=== PATIENT | male | born 1960 | race Caucasian/White ===

== ENCOUNTER 2017-09-22 03:22 | Emergency (ER) | payer MEDICARE, OTHER, SELFPAY | END 2017-09-22 05:59 | disposition home or self-care (01) | PROVIDERS: Emergency Provider Emergency Medicine; Family Provider Emergency Medicine; Visit Provider Emergency Medicine | DX: E87.6 Hypokalemia (principal); D53.9 Nutritional anemia, unspecified; E86.0 Dehydration; E11.9 Type 2 diabetes mellitus without complications; K74.60 Unspecified cirrhosis of liver; W18.12XA Fall from or off toilet with subsequent striking against object, initial encounter; Y92.091 Bathroom in other non-institutional residence as the place of occurrence of the external cause | CPT/HCPCS: 70450; 80053; 82140; 82607; 82746; 83010; 84466; 84484; 85025; 85044; 85610; 93005; 93041; 99284 ==

== ENCOUNTER 2017-10-24 05:25 | Emergency (ER) | payer MEDICARE, OTHER, SELFPAY ==
[2017-10-24 05:26] VITALS: BP 152/107; PULSE 70; RESP 14; TEMP 36.9; O2SAT 99; BMI 29.0
--- NOTE | 2017-10-24 06:03 | [facility].EDGENADL ---
ED Disposition Clinical Impression: Renal colic on left side Disposition: Home, Self-Care Condition on Discharge: Good Instructions: DI for Kidney Stones Additional Instructions: will need to make appt with jane or navjot as op Referrals: Dennys Peters MD [Primary Care Provider] - - Critical Care Critical Care Time: No Attestation: On 10/24/17, the high probability of a clinically significant, sudden or life threatening deterioration of the following system(s) required my full and direct attention, intervention and personal management. The time I documented below is in addition to time spent performing reported procedures but includes the following listed in this critical care notation. Medical Decision Making - Medical Records Medical records reviewed: Yes: I reviewed the patient's medical records. Vital Signs: 10/24/17 05:26 Temperature 98.5 F Temperature Source Oral Pulse Rate [Right Brachial] 70 Respiratory Rate 14 Blood Pressure [Right Arm] 152/107 Blood Pressure Mean [Right Arm] 122 Blood Pressure Source [Right Arm] Automatic Cuff Blood Pressure Position [Right Arm] Supine 02 Sat by Pulse Oximetry 99 Oxygen Delivery Method Room Air - Lab Data Lab results reviewed: Yes: I reviewed the patient's lab results. Lab Results 10/24/17 06:35: WBC 6.8, RBC 3.95 L, Hgb 11.9 L, Hct 36.5 L, MCV 92.3, MCH 30.1, MCHC 32.6, RDW 13.8, Plt Count 197, MPV 8.7, Neut % (Auto) 61.6, Lymph % (Auto) 27.5, Bleckley % (Auto) 6.1, Eos % (Auto) 4.5, Baso % (Auto) 0.4, Neut # (Auto) 4.2, Lymph # (Auto) 1.9, Bleckley # (Auto) 0.4, Eos # (Auto) 0.3, Baso # (Auto) 0.0 10/24/17 06:35: Sodium 143, Potassium 3.9, Chloride 112 H, Carbon Dioxide 28, Anion Gap 6.9, BUN 7, Creatinine 0.71, Estimated Creat Clear 160, Estimated GFR 114, Est GFR ( Amer) 138, Glucose 89, Calcium 9.0, Total Bilirubin 0.5, AST 25, ALT 28, Alkaline Phosphatase 110, Troponin I < 0.02, Total Protein 7.0, Albumin 2.6 L, Globulin 4.4 H, Albumin/Globulin Ratio 0.6 L 10/24/17 06:35: Lipase 100 Result diagrams: 10/24/17 06:35 10/24/17 06:35 Orders (Tests/Meds): ORDERS Category Date Time Status CT abdomen pelvis wo con Stat Cat Scan 10/24/17 06:06 Taken UA [Urinalysis and Microscopic] Stat Lab 10/24/17 06:06 Ordered - CT Data CT Scan: Abdomen, Pelvis Time Received: 07:[address] Reviewed: Yes: I have viewed the radiologist's interpretation Preliminary Findings: Abnormal - Luis Inquiry Pt receiving controlled substance: No General Adult HPI - General Chief complaint: PAIN Stated complaint: back pain Time Seen by Provider: 10/24/17 06:03 Mode of Arrival: EMS Source of Information: Patient, EMS, Medical Record Limitations: No Limitations Description of Symptoms (Recalled from ER Triage Doc. by RN): C/O BACK PAION X 2 WEEKS. MISSED SOME CHIROPRACTIC SESSIONS LATELY. ALSO ISSUES WITH STOMACH,HIP AND NAVEL - History of Present Illness HPI narrative: back pain over the last 2 weeks with no fever or rash - worse tonight Onset (ago): day(s) Location: back Radiation: non-radiation Severity: moderate - Related Data Allergies Allergy/AdvReac Type Severity Reaction Status Date / Time POPCORN Allergy Unknown Uncoded 09/11/17 14:14 [facility] History I have reviewed the patient's past medical history: Yes Medical History: Reports:: Diabetes Mellitus Type 2, MRSA Denies:: Cancer, Diabetes Mellitus Type 1 Amputation: No Fractures: No - *Social History Smoking Status: Current every day smoker Tobacco Type: cigarettes Alcohol Intake: never - Psychiatric History Expresses thoughts of harming self/others: None Suicide Plan Description: No Plan ROS Obtained: Yes All systems reviewed & no additional complaints - Constitutional Constitutional: Denies fever(s) - Eyes Eyes: Denies change in vision - ENT Ears, Nose, Mouth, and Throat: Denies sore throat - Cardiovascular Cardiovascular: Denies chest pain at rest - Respi
--- NOTE | 2017-10-24 06:06 | CT_ITS ---
CT abdomen pelvis wo con CLINICAL INDICATION: Abdominal pain,. Umbilical pain, right-sided pain with diarrhea and constipation ITS.REASON: abd pain ORDERING PHYSICIAN: Dennys Peters MD PATIENT AGE: 57 years COMPARISON: 12/08/2016 TECHNIQUE: Axial images obtained with sagittal and coronal reformats. PROCEDURE: Oral Contrast: None IV Contrast: None . FINDINGS: No acute finding in the lung bases. Prior cholecystectomy without ductal dilatation. There is mild splenomegaly at 14 cm. The liver, adrenal glands, and pancreas show no acute finding. There is mild diffuse that infiltration of the pancreas. There is mild left hydronephrosis and proximal hydroureter secondary to an 11 mm stone in the proximal left ureter. This stone was in the lower left renal collecting system on the previous exam. The right kidney has an unremarkable appearance. Unremarkable appearing urinary bladder. There is diastases of the anterior abdominal wall with a tiny umbilical hernia containing fat. No intestinal obstruction or free air is evident. No evidence of appendicitis or diverticulitis. There is a small amount fluid in the pelvis. No evidence of aortic aneurysm. There is a mild amount retained feces within the large bowel. A small lucent lesion involves posterior aspect of the femoral head. This had a similar appearance on 12/08/2016. The lesion is indeterminate as previously described. There are degenerative changes in the lumbar spine with osteophytosis. There is mild lumbar scoliosis convex right. IMPRESSION: 1. 11 mm obstructing proximal left ureteral calculus at the ureteropelvic junction with mild left hydronephrosis. 2. 1 cm lytic lesion of the left femoral neck/head junction posteriorly unchanged indeterminate. Consider bone scan for further evaluation. 3. Other nonacute findings as described above.
--- NOTE | 2017-10-24 06:07 | ED_ITS ---
ED Disposition Clinical Impression: Renal colic on left side Disposition: Home, Self-Care Condition on Discharge: Good Instructions: DI for Kidney Stones Additional Instructions: will need to make appt with jane or navjot as op Referrals: Dennys Peters MD [Primary Care Provider] - - Critical Care Critical Care Time: No Attestation: On 10/24/17, the high probability of a clinically significant, sudden or life threatening deterioration of the following system(s) required my full and direct attention, intervention and personal management. The time I documented below is in addition to time spent performing reported procedures but includes the following listed in this critical care notation. Medical Decision Making - Medical Records Medical records reviewed: Yes: I reviewed the patient's medical records. Vital Signs: 10/24/17 05:26 Temperature 98.5 F Temperature Source Oral Pulse Rate [Right Brachial] 70 Respiratory Rate 14 Blood Pressure [Right Arm] 152/107 Blood Pressure Mean [Right Arm] 122 Blood Pressure Source [Right Arm] Automatic Cuff Blood Pressure Position [Right Arm] Supine 02 Sat by Pulse Oximetry 99 Oxygen Delivery Method Room Air - Lab Data Lab results reviewed: Yes: I reviewed the patient's lab results. Lab Results 10/24/17 06:35: WBC 6.8, RBC 3.95 L, Hgb 11.9 L, Hct 36.5 L, MCV 92.3, MCH 30.1 , MCHC 32.6, RDW 13.8, Plt Count 197, MPV 8.7, Neut % (Auto) 61.6, Lymph % (Auto ) 27.5, Perkins % (Auto) 6.1, Eos % (Auto) 4.5, Baso % (Auto) 0.4, Neut # (Auto) 4.2, Lymph # (Auto) 1.9, Perkins # (Auto) 0.4, Eos # (Auto) 0.3, Baso # (Auto) 0.0 10/24/17 06:35: Sodium 143, Potassium 3.9, Chloride 112 H, Carbon Dioxide 28, Anion Gap 6.9, BUN 7, Creatinine 0.71, Estimated Creat Clear 160, Estimated GFR 114, Est GFR ( Amer) 138, Glucose 89, Calcium 9.0, Total Bilirubin 0.5, AST 25, ALT 28, Alkaline Phosphatase 110, Troponin I < 0.02, Total Protein 7.0, Albumin 2.6 L, Globulin 4.4 H, Albumin/Globulin Ratio 0.6 L 10/24/17 06:35: Lipase 100 Result diagrams: 10/24/17 06:35 10/24/17 06:35 Orders (Tests/Meds): ORDERS Category Date Time Status CT abdomen pelvis wo con Stat Cat Scan 10/24/17 06:06 Taken UA [Urinalysis and Microscopic] Stat Lab 10/24/17 06:06 Ordered - CT Data CT Scan: Abdomen, Pelvis Time Received: 07:[address] Reviewed: Yes: I have viewed the radiologist's interpretation Preliminary Findings: Abnormal - Luis Inquiry Pt receiving controlled substance: No General Adult HPI - General Chief complaint: PAIN Stated complaint: back pain Time Seen by Provider: 10/24/17 06:03 Mode of Arrival: EMS Source of Information: Patient, EMS, Medical Record Limitations: No Limitations Description of Symptoms (Recalled from ER Triage Doc. by RN): C/O BACK PAION X 2 WEEKS. MISSED SOME CHIROPRACTIC SESSIONS LATELY. ALSO ISSUES WITH STOMACH,HIP AND NAVEL - History of Present Illness HPI narrative: back pain over the last 2 weeks with no fever or rash - worse tonight Onset (ago): day(s) Location: back Radiation: non-radiation Severity: moderate - Related Data Allergies Allergy/AdvReac Type Severity Reaction Status Date / Time POPCORN Allergy Unknown Uncoded 09/11/17 14:14 [facility] History I have reviewed the patient's past medical history: Yes Medical History: Reports:: Diabetes M
[2017-10-24 06:49] LABS: Basophils % 0.4 % (0.1-2.0); Eosinophils # 0.3 K/mm3 (0.0-0.4); Eosinophils % 4.5 % (0.1-12.0); Hematocrit 36.5 % (42.0-52.0); Hemoglobin 11.9 g/dL (14.1-18.0); Lymphocytes # 1.9 K/mm3 (0.7-4.5); Lymphocytes % 27.5 K/mm3 (10-50); Mean Corpuscular HGB Conc 32.6 g/dL (31.8-35.4); Mean Corpuscular Hemoglobin 30.1 pg (27.0-31.2); Mean Corpuscular Volume 92.3 fl (80-94); Mean Platelet Volume 8.7 fl (7.4-10.4); Monocytes # 0.4 K/mm3 (0.1-1.0); Monocytes % 6.1 % (1.7-9.3); Neutrophils # 4.2 K/mm3 (1.8-7.8); Neutrophils % 61.6 % (37.0-80.0); Platelet Count 197 K/mm3 (142-424); Red Blood Count 3.95 M/mm3 (4.60-6.20); Red Cell Distribution Width 13.8 % (11.5-17.5); White Blood Count 6.8 K/mm3 (4.8-10.8)
[2017-10-24 07:07] LABS: Alanine Aminotransferase 28 U/L (12-78); Albumin Level 2.6 gm/dL (3.4-5.0); Albumin/Globulin Ratio 0.6 (1.1-1.8); Alkaline Phosphatase 110 U/L (46-116); Anion Gap 6.9 mEq/L (5-15); Aspartate Amino Transferase 25 U/L (15-37); Bilirubin,Total 0.5 mg/dL (0.2-1.0); Blood Urea Nitrogen 7 mg/dL (7-18); Carbon Dioxide 28 mmol/L (21.0-32.0); Chloride 112 mmol/L (98-107); Creatinine Clearance Estimated 160 mL/min (0-300); Creatinine,Serum 0.71 mg/dL (0.70-1.30); Estimated Glomerular Filt Rate 114 ml/min (>60); GFR (African American) 138 ML/MIN (>60); Globulin 4.4 gm/dl (1.3-3.2); Glucose 89 mg/dL (74-106); Potassium 3.9 mmoL/L (3.5-5.1); Sodium 143 mmol/L (136-145); Troponin I < 0.02 ng/ml (0.00-0.06)
[2017-10-24 07:10] LABS: Lipase 100 u/L (73-393)
[2017-10-24 08:09] VITALS: BP 134/73; PULSE 72; RESP 16; TEMP 36.8; O2SAT 98
== END 2017-10-24 08:15 | disposition home or self-care (01) ==
PROVIDERS: Emergency Provider Emergency Medicine; Family Provider Emergency Medicine; PCP Emergency Medicine
DX: N23 Unspecified renal colic (principal); F17.210 Nicotine dependence, cigarettes, uncomplicated; E11.9 Type 2 diabetes mellitus without complications; Z86.14 Personal history of Methicillin resistant Staphylococcus aureus infection
CPT/HCPCS: 74176; 80053; 83690; 84484; 85025; 96374; 99283

== ENCOUNTER 2017-11-10 17:34 | Emergency (ER) | payer MEDICARE, OTHER, SELFPAY ==
[2017-11-10 17:35] VITALS: BP 141/77; PULSE 67; RESP 16; TEMP 36.9; O2SAT 100; BMI 30.4
--- NOTE | 2017-11-10 17:48 | CT_ITS ---
CT cervical spine wo con Ordering Physician: Raheel Thao MD : 57 years: Male HISTORY: ITS.REASON: fallneck pain head injury. Left frontal headache left-sided neck pain. TECHNIQUE: Helical CT scanning performed through the cervical spine with thickened axial sagittal and coronal reconstructions Performed on CT workstation COMPARISON :Previous CT cervical spine August 17, 2017 & June 2017 August 13, 2017 thoracic and lumbar spine FINDINGS----- No acute fracture nor subluxation . Prevertebral soft tissues appear normal. No significant change since prior studies. Prominent cervical spondylosis is again evident.-similar to prior studies . C5-C6 Most exuberant posterior spurring and hypertrophy seen at this level midline and to the left of midline, effacing the left aspect of cervical cord and yielding spinal stenosis. Similar to previous study. C6/7 Mild diffuse hypertrophic ridging at, most evident midline and to most the left. Moderate effaces anterior aspect of thecal sac and mildly effaces cervical cord. Likely mild central disc protrusion C4/5 and central spurring with disc at C3/4. -Both these levels Stable as well The slightly mottled appearance of the bone throughout the lower C-spine upper T-spine is similar with no change likely reflecting combination of demineralization and developing degenerative change throughout bone.. However this patchy demineralization pattern slightly advanced for this age 57 [address] CT lumbar studies May 2017 as well. To note the patient has had multiple studies of spine & other structures.. May want to want to consider follow-up serum electrophoresis with this appearance is exclude unlikely myeloma, particularly if proteinuria is present. Facets intact with normal relationships. Mild degenerative facet changes most evident towards the lower C-spine again noted. . C1/C2 relationships appears stable with hypertrophic changes about the dens again observed and degenerative narrowing at the atlantodens interval --------IMPRESSION: -------- 1. No acute fracture nor subluxation cervical spine. Stable appearance C-spine compared to Jul & June 2017 CT C-spine 2. . Cervical spondylosis multilevel degenerative disc changes again noted similar 2017 CT study Most prominent spurring and hard disc is seen to the left at C5-C6. Less pronounced spurring/& spondylosis at other levels 3. Incidental observation Slightly mottled appearance with suggestion decreased bone density throughout spine.- May merely reflect degenerative change & early demineralization. However Might consider checking serum electrophoresis particularly if proteinuria and/or persistent back pain.
--- NOTE | 2017-11-10 17:48 | CT_ITS ---
CT head/brain wo con Ordering Physician: Raheel Thao MD Patient Age: 57 years: Male HISTORY: ITS.REASON: fall. Headache head pain and neck pain Head trauma. Loss of consciousness. HISTORY of epilepsy. TECHNIQUE: Routine axial CT head Axial scans are obtained from the base of the skull to the vertex and performed without contrast.. With brain and bone windows performed and submitted to PACS COMPARISON :Previous CT head September 22, 2017 and July 2017 FINDINGS No acute intracranial findings No significant changes prior study. No mass effect no territorial infarct. No subdural or extra-axial collection. Volume averaging of the anterior clinoid bone accounts for the appearance on axial image 17. This area is stable The base of the skull appeared normal. The ventricular system was normal. There was no ischemic infarct or bleed and there were no extra-axial fluid collections. The bony calvarium appeared intact and unchanged. Visualized portions of paranasal sinuses are clear. Mastoid air cells, middle air and IACs appear satisfactory & unremarkable. Low-density Cerumen at the both external canal incidentally noted.. IMPRESSION: 1. No acute intracranial findings . Stable, Negative noncontrast CT scan of the brain.
--- NOTE | 2017-11-10 18:34 | [facility].EDGENADL ---
ED Disposition Clinical Impression: Closed head injury Qualifiers: Encounter type: initial encounter Qualified Code(s): S09.90XA - Unspecified injury of head, initial encounter Disposition: Home, Self-Care Condition on Discharge: Good Instructions: DI for Concussion Additional Instructions: be careful upon standing Referrals: Dennys Peters MD [Primary Care Provider] - - Critical Care Critical Care Time: No Attestation: On 11/10/17, the high probability of a clinically significant, sudden or life threatening deterioration of the following system(s) required my full and direct attention, intervention and personal management. The time I documented below is in addition to time spent performing reported procedures but includes the following listed in this critical care notation. Medical Decision Making Vital Signs: 11/10/17 17:35 Temperature 98.5 F Temperature Source Oral Pulse Rate [Right Radial] 67 Respiratory Rate 16 Blood Pressure [Right Arm] 141/77 Blood Pressure Mean [Right Arm] 98 02 Sat by Pulse Oximetry 100 Oxygen Delivery Method Room Air Orders (Tests/Meds): ED MEDICATIONS Discontinued Medications Generic Name Dose Route Start Last Admin Trade Name Freq PRN Reason Stop Dose Admin Ketorolac Tromethamine 60 mg 11/10/17 19:50 Toradol 60mg/2ml Vial IM 11/10/17 19:51 ONCE ONE - CT Data CT Scan: Head, C-Spine Time Received: 19:[address] Reviewed: Yes: I have reviewed the patient's CT results Preliminary Findings: Normal/NAD - Luis Inquiry Pt receiving controlled substance: No Luis was queried for this patient: No General Adult HPI - General Chief complaint: Head Injury Stated complaint: head injury Time Seen by Provider: 11/10/17 17:45 Mode of Arrival: EMS Limitations: No Limitations Description of Symptoms (Recalled from ER Triage Doc. by RN): pt states he fell in his bedroom and hit the back of his head. - History of Present Illness Onset (ago): hour(s) (1) Location: head, face Radiation: non-radiation Severity: mild Severity scale (1-10): 2 Quality: aching Consistency: constant Relieving factors: none Exacerbating factors: none Associated symptoms: denies other symptoms Treatments prior to arrival: none - Related Data Allergies Allergy/AdvReac Type Severity Reaction Status Date / Time No Known Allergies Allergy Verified 11/10/17 17:48 [facility] History Medical History: Reports:: Diabetes Mellitus Type 2, MRSA Denies:: Cancer, Diabetes Mellitus Type 1 Laterality Cases: Bilateral: Arthroscopy Knee Amputation: No Fractures: No - *Social History Smoking Status: Current every day smoker Tobacco Type: cigarettes Alcohol Intake: never - Psychiatric History Expresses thoughts of harming self/others: None Suicide Plan Description: No Plan ROS Obtained: Yes All systems reviewed & no additional complaints - Constitutional Constitutional: Reports system reviewed and no additional complaints, except as docu - Eyes Eyes: Reports system reviewed and no additional complaints, except as docu - ENT Ears, Nose, Mouth, and Throat: Reports nasal congestion Comments: epistaxsis from hitting nose, - Cardiovascular Cardiovascular: Reports system reviewed and no additional complaints, except as docu - Respiratory Respiratory: Yes system reviewed and no additional complaints, except as docu - Musculoskeletal Comments: contusion/ abrasion over left patella (replacement) - Neurologic Neurologic: Reports system reviewed and no additional complaints, except as docu Physical Exam - General General appearance: alert, in no apparent distress - Head Head exam: normal inspection - Eye Eye exam: Present: normal appearance, PERRL, EOMI - ENT ENT exam: Present: other - Neck Neck exam: Present: normal inspection, full ROM, tenderness (mild tenderness along midline without crepitis or stepoff) - Expanded Neck Exam Neck exam foc
--- NOTE | 2017-11-10 18:37 | ED_ITS ---
ED Disposition Clinical Impression: Closed head injury Qualifiers: Encounter type: initial encounter Qualified Code(s): S09.90XA - Unspecified injury of head, initial encounter Disposition: Home, Self-Care Condition on Discharge: Good Instructions: DI for Concussion Additional Instructions: be careful upon standing Referrals: Dennys Peters MD [Primary Care Provider] - - Critical Care Critical Care Time: No Attestation: On 11/10/17, the high probability of a clinically significant, sudden or life threatening deterioration of the following system(s) required my full and direct attention, intervention and personal management. The time I documented below is in addition to time spent performing reported procedures but includes the following listed in this critical care notation. Medical Decision Making Vital Signs: 11/10/17 17:35 Temperature 98.5 F Temperature Source Oral Pulse Rate [Right Radial] 67 Respiratory Rate 16 Blood Pressure [Right Arm] 141/77 Blood Pressure Mean [Right Arm] 98 02 Sat by Pulse Oximetry 100 Oxygen Delivery Method Room Air Orders (Tests/Meds): ED MEDICATIONS Discontinued Medications Generic Name Dose Route Start Last Admin Trade Name Freq PRN Reason Stop Dose Admin Ketorolac Tromethamine 60 mg 11/10/17 19:50 Toradol 60mg/2ml Vial IM 11/10/17 19:51 ONCE ONE - CT Data CT Scan: Head, C-Spine Time Received: 19:[address] Reviewed: Yes: I have reviewed the patient's CT results Preliminary Findings: Normal/NAD - Luis Inquiry Pt receiving controlled substance: No Luis was queried for this patient: No General Adult HPI - General Chief complaint: Head Injury Stated complaint: head injury Time Seen by Provider: 11/10/17 17:45 Mode of Arrival: EMS Limitations: No Limitations Description of Symptoms (Recalled from ER Triage Doc. by RN): pt states he fell in his bedroom and hit the back of his head. - History of Present Illness Onset (ago): hour(s) (1) Location: head, face Radiation: non-radiation Severity: mild Severity scale (1-10): 2 Quality: aching Consistency: constant Relieving factors: none Exacerbating factors: none Associated symptoms: denies other symptoms Treatments prior to arrival: none - Related Data Allergies Allergy/AdvReac Type Severity Reaction Status Date / Time No Known Allergies Allergy Verified 11/10/17 17:48 [facility] History Medical History: Reports:: Diabetes Mellitus Type 2, MRSA Denies:: Cancer, Diabetes Mellitus Type 1 Laterality Cases: Bilateral: Arthroscopy Knee Amputation: No Fractures: No - *Social History Smoking Status: Current every day smoker Tobacco Type: cigarettes Alcohol Intake: never - Psychiatric History Expresses thoughts of harming self/others: None Suicide Plan Description: No Plan ROS Obtained: Yes All systems reviewed & no additional complaints - Constitutional Constitutional: Reports system reviewed and no additional complaints, except as docu - Eyes Eyes: Reports system reviewed and no additional complaints, except as docu - ENT Ears, Nose, Mouth, and Throat: Reports nasal congestion Comments: epistaxsis from hitting nose, - Cardiovascular Cardiovascular: Reports system reviewed and no additional complai
[2017-11-10 20:19] VITALS: BP 127/78; PULSE 76; RESP 16; TEMP 36.7; O2SAT 97
== END 2017-11-10 20:26 | disposition home or self-care (01) ==
PROVIDERS: Emergency Provider Family Medicine; Family Provider Emergency Medicine; PCP Emergency Medicine
DX: S09.90XA Unspecified injury of head, initial encounter (principal); W01.0XXA Fall on same level from slipping, tripping and stumbling without subsequent striking against object, initial encounter; Y92.013 Bedroom of single-family (private) house as the place of occurrence of the external cause; Z22.322 Carrier or suspected carrier of Methicillin resistant Staphylococcus aureus; F17.210 Nicotine dependence, cigarettes, uncomplicated; E11.9 Type 2 diabetes mellitus without complications
CPT/HCPCS: 70450; 72125; 96372; 99281

== ENCOUNTER 2017-12-16 12:59 | Emergency (ER) | payer MEDICARE, OTHER, SELFPAY ==
[2017-12-16 12:53] VITALS: BP 105/60; PULSE 70; RESP 18; TEMP 36.6; O2SAT 97; BMI 26.9
--- NOTE | 2017-12-16 13:02 | CT_ITS ---
CT cervical spine wo con INDICATION: Pain following injury/fall, blunt trauma, right-sided weakness ITS.REASON: right sided weakness and numbness ORDERING PHYSICIAN: Veronica Malik MD PATIENT AGE: 57 years COMPARISON: None TECHNIQUE: Axial images are obtained without contrast. Sagittal and coronal reformatted images are reviewed as well. All CT scans at the facility use one or more dose reduction, viz: automated exposure control; ma/kV adjustment per patient size (including targeted exams where dose is matched to indication; i.e. head); or iterative reconstruction technique. FINDINGS: Normal alignment. No fracture or dislocation. Prominent anterior marginal osteophytes are present at C3-C4 and C5-C6. Mild multilevel degenerative disc disease is present. C3-C4: Mild uncovertebral hypertrophy. Partially calcified posterior longitudinal ligament. C4-C5: Mild degenerative disc disease with partially calcified posterior longitudinal ligament. C5-C6: Prominent left paracentral disc osteophyte complex with borderline narrowing of the canal and left lateral recess and foraminal narrowing. Prominent posterior longitudinal ligament calcification. C6-C7: Broad-based central disc osteophyte complex with prominent posterior longitudinal ligament calcification. Lung apices are clear. IMPRESSION: 1. No acute fracture. 2. Multilevel cervical spondylosis. Please see above for 2000 description at each level. Calcification of posterior longitudinal ligament. 3. C5-C6: Prominent left paracentral disc osteophyte complex with borderline narrowing of the canal and left lateral recess and foraminal narrowing. Prominent posterior longitudinal ligament calcification. 4. C6-C7: Broad-based central disc osteophyte complex with prominent posterior longitudinal ligament calcification Consider MRI for further evaluation to determine the degree of neural impingement
--- NOTE | 2017-12-16 13:02 | XR_ITS ---
XR chest AP HISTORY: TIA ITS.REASON: tia ORDERING PHYSICIAN: Veronica Malik MD PATIENT AGE: 57 years COMPARISON: 09/02/2017 FINDINGS: Unremarkable cardiovascular structures with clear lungs. No acute bony anomalies. IMPRESSION: No acute finding
--- NOTE | 2017-12-16 13:02 | CT_ITS ---
CT head/brain wo con HISTORY: Altered mental status, memory loss, speech disturbance, confusion or disorientation, slurred speech with confusion ITS.REASON: right sided weakness and numbness ORDERING PHYSICIAN: Veronica Malik MD PATIENT AGE: 57 years COMPARISON: None TECHNIQUE: Axial images obtained without contrast. Brain and bone windows reviewed. All CT scans at the facility use one or more dose reduction, viz: automated exposure control; ma/kV adjustment per patient size (including targeted exams where dose is matched to indication; i.e. head); or iterative reconstruction technique. FINDINGS: No midline shift, mass effect, intracranial hemorrhage, hydrocephalus, or extra-axial fluid collection is evident. The calvarium has an unremarkable appearance. No mastoid effusion. No sinus air-fluid levels.. IMPRESSION: Negative CT head without contrast. No acute finding.
--- NOTE | 2017-12-16 13:02 | XR_ITS ---
XR hip RT 2-3V w/pelvis HISTORY: Pain following injury ITS.REASON: fell yesterday ORDERING PHYSICIAN: Veronica Malik MD PATIENT AGE: 57 years COMPARISON: None FINDINGS: Osteoarthritic changes are present involving both hips. There is a left ureteral stent present. The distal tip is curled in the region of the pelvis on the left. Osteoarthritic changes of the right hip. No obvious fracture or dislocation. IMPRESSION: No acute fracture. Osteoarthritis of the hips
--- NOTE | 2017-12-16 13:05 | [facility].EDGENADL ---
ED Disposition Clinical Impression: TIA (transient ischemic attack), Hypertension, Dehydration, Acute thalamic infarction, Liver cirrhosis Disposition: Xfer Short-Term Hosp Condition on Discharge: Fair Referrals: Dennys Peters MD [Primary Care Provider] - - Critical Care Critical Care Time: No Attestation: On , the high probability of a clinically significant, sudden or life threatening deterioration of the following system(s) required my full and direct attention, intervention and personal management. The time I documented below is in addition to time spent performing reported procedures but includes the following listed in this critical care notation. Medical Decision Making - Luis Inquiry Pt receiving controlled substance: No Luis was queried for this patient: No Vital Signs: 12/16/17 12:53 Temperature 98 F Temperature Source Oral Pulse Rate [Right Brachial] 70 Respiratory Rate 18 Blood Pressure [Right Arm] 105/60 Blood Pressure Mean [Right Arm] 75 Blood Pressure Source [Right Arm] Automatic Cuff 02 Sat by Pulse Oximetry 97 Oxygen Delivery Method Room Air - Lab Data Lab Results 12/16/17 14:28: WBC 6.7, RBC 3.14 L, Hgb 9.1 L, Hct 27.7 L, MCV 88.3, MCH 29.2, MCHC 33.0, RDW 14.3, Plt Count 297, MPV 7.9, Neut % (Auto) 73.5, Lymph % (Auto) 16.6, [place] % (Auto) 5.9, Eos % (Auto) 3.7, Baso % (Auto) 0.2, Neut # (Auto) 4.9, Lymph # (Auto) 1.1, [place] # (Auto) 0.4, Eos # (Auto) 0.3, Baso # (Auto) 0.0 12/16/17 14:28: Sodium 140, Potassium 3.3 L, Chloride 106, Carbon Dioxide 26, Anion Gap 11.3, BUN 12, Creatinine 0.81, Estimated Creat Clear 134, Estimated GFR 98, Est GFR ( Amer) 118, Glucose 64 L, Calcium 8.9, Magnesium 1.8, Total Bilirubin 0.7, AST 24, ALT 17, Alkaline Phosphatase 116, Total Creatine Kinase 37 L, CK-MB (CK-2) 1.0, CK-MB (CK-2) Rel Index 2.7, Troponin I < 0.02, Total Protein 7.0, Albumin 2.1 L, Globulin 4.9 H, Albumin/Globulin Ratio 0.4 L Result diagrams: 12/16/17 14:28 12/16/17 14:28 Orders (Tests/Meds): ED MEDICATIONS Discontinued Medications Generic Name Dose Route Start Last Admin Trade Name Ana PRN Reason Stop Dose Admin Sodium Chloride 1,000 mls @ 999 mls/hr 12/16/17 13:15 12/16/17 14:53 Sod Chlor 0.9% 1000ml Bag IV 12/16/17 14:15 999 mls/hr .Q1H1M BOB Administration ORDERS Category Date Time Status CT cervical spine wo con Stat Cat Scan 12/16/17 13:[address] head/brain wo con Stat Cat Scan 12/16/17 13:02 Taken XR chest AP Stat Exams 12/16/17 13:02 Taken XR hip RT 2-3V w/pelvis Stat Exams 12/16/17 13:02 Taken UA [Urinalysis and Microscopic] Stat Lab 12/16/17 13:02 Ordered - Radiology Data #1 Image(s): Chest, Hip Image Reviewed: Yes I reviewed the patient's radiology image Preliminary Findings: Abnormal Postop changes left ureteric stent no acute fracture on the hip x-ray. X-ray no acute findings. - CT Data CT Scan: Head, C-Spine Time Received: 15:19 Preliminary Findings: Abnormal Findings Narrative: Head CT scan was negative for acute finding. 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 - ECG Data Tracing #1 Normal sinus rhythm 65/min first-degree AV block, no acute findings ECG initial impression date: 12/16/17 ECG initial impression time: 15:06 Medical Decision Narrative: I discussed the presentation with Dr. Stacy Dumont the stroke attending at [facility], discussed his possible differential diagnosis from being hypoglycemic hypotension versus neurological deficit due to a lacunar infarct of the thalamic nucleus. Dr. Dumont accepted the patient for transfer to [facility] for evaluation. Patient remained hemodynamically and neurologically stable until transfer. General Adult HPI - General Chief complaint: Extremity Injury, Lower Stated complaint: RIGHT LEG PAIN/NUMBNESS Time Seen by Provider: 12/16/17 13:00 - History of Present I
--- NOTE | 2017-12-16 13:08 | ED_ITS ---
ED Disposition Clinical Impression: TIA (transient ischemic attack), Hypertension, Dehydration, Acute thalamic infarction, Liver cirrhosis Disposition: Xfer Short-Term Hosp Condition on Discharge: Fair Referrals: Dennys Peters MD [Primary Care Provider] - - Critical Care Critical Care Time: No Attestation: On , the high probability of a clinically significant, sudden or life threatening deterioration of the following system(s) required my full and direct attention, intervention and personal management. The time I documented below is in addition to time spent performing reported procedures but includes the following listed in this critical care notation. Medical Decision Making - Luis Inquiry Pt receiving controlled substance: No Luis was queried for this patient: No Vital Signs: 12/16/17 12:53 Temperature 98 F Temperature Source Oral Pulse Rate [Right Brachial] 70 Respiratory Rate 18 Blood Pressure [Right Arm] 105/60 Blood Pressure Mean [Right Arm] 75 Blood Pressure Source [Right Arm] Automatic Cuff 02 Sat by Pulse Oximetry 97 Oxygen Delivery Method Room Air - Lab Data Lab Results 12/16/17 14:28: WBC 6.7, RBC 3.14 L, Hgb 9.1 L, Hct 27.7 L, MCV 88.3, MCH 29.2, MCHC 33.0, RDW 14.3, Plt Count 297, MPV 7.9, Neut % (Auto) 73.5, Lymph % (Auto) 16.6, [place] % (Auto) 5.9, Eos % (Auto) 3.7, Baso % (Auto) 0.2, Neut # (Auto) 4.9 , Lymph # (Auto) 1.1, [place] # (Auto) 0.4, Eos # (Auto) 0.3, Baso # (Auto) 0.0 12/16/17 14:28: Sodium 140, Potassium 3.3 L, Chloride 106, Carbon Dioxide 26, Anion Gap 11.3, BUN 12, Creatinine 0.81, Estimated Creat Clear 134, Estimated GFR 98, Est GFR ( Amer) 118, Glucose 64 L, Calcium 8.9, Magnesium 1.8, Total Bilirubin 0.7, AST 24, ALT 17, Alkaline Phosphatase 116, Total Creatine Kinase 37 L, CK-MB (CK-2) 1.0, CK-MB (CK-2) Rel Index 2.7, Troponin I < 0.02, Total Protein 7.0, Albumin 2.1 L, Globulin 4.9 H, Albumin/Globulin Ratio 0.4 L Result diagrams: 12/16/17 14:28 12/16/17 14:28 Orders (Tests/Meds): ED MEDICATIONS Discontinued Medications Generic Name Dose Route Start Last Admin Trade Name Freq PRN Reason Stop Dose Admin Sodium Chloride 1,000 mls @ 999 mls/hr 12/16/17 13:15 12/16/17 14:53 Sod Chlor 0.9% 1000ml Bag IV 12/16/17 14:15 999 mls/hr .Q1H1M BOB Administration ORDERS Category Date Time Status CT cervical spine wo con Stat Cat Scan 12/16/17 13:[address] head/brain wo con Stat Cat Scan 12/16/17 13:02 Taken XR chest AP Stat Exams 12/16/17 13:02 Taken XR hip RT 2-3V w/pelvis Stat Exams 12/16/17 13:02 Taken UA [Urinalysis and Microscopic] Stat Lab 12/16/17 13:02 Ordered - Radiology Data #1 Image(s): Chest, Hip Image Reviewed: Yes I reviewed the patient's radiology image Preliminary Findings: Abnormal Postop changes left ureteric stent no acute fracture on the hip x-ray. X-ray no acute findings. - CT Data CT Scan: Head, C-Spine Time Received: 15:19 Preliminary Findings: Abnormal Findings Narrative: Head CT scan was negative for acute finding. 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 - ECG Data Tracing #1 Normal sinus rhythm 65/min first-degree AV block, no acute findings ECG initial impression date: 12/16/17 ECG initial impression time: 15:06 Medical Lino
[2017-12-16 14:40] LABS: Basophils % 0.2 % (0.1-2.0); Eosinophils # 0.3 K/mm3 (0.0-0.4); Eosinophils % 3.7 % (0.1-12.0); Hematocrit 27.7 % (42.0-52.0); Hemoglobin 9.1 g/dL (14.1-18.0); Lymphocytes # 1.1 K/mm3 (0.7-4.5); Lymphocytes % 16.6 K/mm3 (10-50); Mean Corpuscular Hemoglobin 29.2 pg (27.0-31.2); Mean Corpuscular Volume 88.3 fl (80-94); Mean Platelet Volume 7.9 fl (7.4-10.4); Monocytes # 0.4 K/mm3 (0.1-1.0); Monocytes % 5.9 % (1.7-9.3); Neutrophils # 4.9 K/mm3 (1.8-7.8); Neutrophils % 73.5 % (37.0-80.0); Platelet Count 297 K/mm3 (142-424); Red Blood Count 3.14 M/mm3 (4.60-6.20); Red Cell Distribution Width 14.3 % (11.5-17.5); White Blood Count 6.7 K/mm3 (4.8-10.8)
[2017-12-16 15:08] LABS: Alanine Aminotransferase 17 U/L (12-78); Albumin Level 2.1 gm/dL (3.4-5.0); Albumin/Globulin Ratio 0.4 (1.1-1.8); Alkaline Phosphatase 116 U/L (46-116); Anion Gap 11.3 mEq/L (5-15); Aspartate Amino Transferase 24 U/L (15-37); Bilirubin,Total 0.7 mg/dL (0.2-1.0); Blood Urea Nitrogen 12 mg/dL (7-18); CKMB Relative Index 2.7 U/L (0-4.0); Calcium 8.9 mg/dL (8.5-10.1); Carbon Dioxide 26 mmol/L (21.0-32.0); Chloride 106 mmol/L (98-107); Creatine Kinase 37 U/L (39-308); Creatinine Clearance Estimated 134 mL/min (0-300); Creatinine,Serum 0.81 mg/dL (0.70-1.30); Estimated Glomerular Filt Rate 98 ml/min (>60); GFR (African American) 118 ML/MIN (>60); Globulin 4.9 gm/dl (1.3-3.2); Glucose 64 mg/dL (74-106); Magnesium 1.8 mg/dL (1.4-2.2); Potassium 3.3 mmoL/L (3.5-5.1); Sodium 140 mmol/L (136-145); Troponin I < 0.02 ng/ml (0.00-0.06)
[2017-12-16 15:24] LABS: POC Glucose,Bedside 60 mg/dL (70-110)
[2017-12-16 18:00] VITALS: BP 128/87; PULSE 79; RESP 18; TEMP 36.7; O2SAT 96
== END 2017-12-16 18:00 | disposition short-term general hospital (02) ==
PROVIDERS: Emergency Provider Emergency Medicine; Family Provider Emergency Medicine; PCP Emergency Medicine
DX: I63.9 Cerebral infarction, unspecified (principal); G45.8 Other transient cerebral ischemic attacks and related syndromes; K74.60 Unspecified cirrhosis of liver; I10 Essential (primary) hypertension; E86.0 Dehydration
CPT/HCPCS: 70450; 71045; 72125; 73502; 80053; 82550; 82553; 82962; 83735; 84484; 85025; 93005; 96365; 96366; 96375; 99283